=== PATIENT | female | born 1955 | race African-American/Black ===

== ENCOUNTER 2021-02-14 15:13 | Emergency (ER) | payer BC, MEDICAID, OTHER ==
[~2021-02-14] VITALS: Ht 165.1 cm; Wt 113.0 kg
[2021-02-14] MEDS ORDERED: ACETAMINOPHEN 325MG TABLET PO STA (17:27)
[2021-02-14] MEDS ORDERED: SODIUM CHLORIDE 0.9% 1000ML BAG (SEPSIS BOLUS) IV ONE (17:30)
[2021-02-14] MEDS ORDERED: ACETAMINOPHEN 325MG TABLET PO ONE (17:30)
[2021-02-14 18:18] LABS: BASOPHILS % 0.5 % (0.0-2.0); EOSINOPHILS % 0.2 % (0.0-5.0); HEMATOCRIT. 37.9 % (36.0-48.0); HEMOGLOBIN. 12.9 g/dL (12.0-16.0); LYMPHOCYTES % 15.7 % (20.0-50.0); MEAN CORPUSCULAR HEMOGLOBIN 30.1 pg (28.0-32.0); MEAN CORPUSCULAR VOLUME 88.6 fL (81.0-99.0); MEAN PLATELET VOLUME 10.4 fl (7.4-10.4); MONOCYTES % 12.6 % (2.0-8.0); PLATELET 184 x1000/uL (130-400); RED BLOOD CELL COUNT 4.28 mill/uL (4.2-5.4); RED CELL DISTRIBUTION WIDTH 13.3 % (11.6-14.6)
[2021-02-14 18:25] LABS: CHLORIDE 102 mEq/L (98-107)
[2021-02-14 18:27] LABS: PROTHROMBIN TIME 11.1 sec (9.6-11.0)
[2021-02-14] MEDS ORDERED: DOXYCYCLINE HYCLATE 100 MG/VIAL IV ONE (18:30)
[2021-02-14] MEDS ORDERED: DOXYCYCLINE 100MG in DEXTROSE 5% WATER 100ML IV SCH (18:30)
[2021-02-14] MEDS ORDERED: CEFTRIAXONE 1 G PREMIX 50 ML IV ONE (18:30)
[2021-02-14 19:21] VITALS: BP 132/82
[2021-02-14 20:14] LABS: CLARITY URINE CLOUDY (CLEAR); COLOR URINE DARK YELLOW (YELLOW); KETONES URINE TRACE (NEGATIVE); LEUKOCYTE ESTERASE URINE TRACE (NEGATIVE); NITRITE URINE NEGATIVE (NEGATIVE); OCCULT BLOOD URINE NEGATIVE (NEGATIVE); PROTEIN URINE 1+ (NEGATIVE); SPECIFIC GRAVITY URINE 1.018 (1.005-1.030)
[2021-02-14] MEDS ORDERED: AMOX-424 MT (22:26)
[2021-02-14] MEDS ORDERED: DOXY100T2 MT (22:27)
== END 2021-02-14 23:29 | disposition home or self-care (01) ==
LOC: ER 15:29
DX: J18.9 Pneumonia, unspecified organism (principal); Z20.822 Contact with and (suspected) exposure to COVID-19; R94.31 Abnormal electrocardiogram [ECG] [EKG]
CPT/HCPCS: 36415; 71045; 80053; 81003; 83605; 83880; 84145; 84484; 85025; 85610; 87040; 87086; 87426; 93005; 96360; 96361; 99285; J7030; Z7610; J3490; J7060